=== PATIENT | female | born 1980 | race Caucasian/White ===

== ENCOUNTER 2018-01-19 09:33 | Inpatient (IN) | payer OTHER ==
[2018-01-19] MEDS ORDERED: Oxytocin 10 Units/1 ML SDV IM ONE (10:47)
[2018-01-19] MEDS ORDERED: Lidocaine 1% 50 ML MDV INJECT ONE (10:47)
[2018-01-19] MEDS ORDERED: Methylergonovine 0.2 MG/1 ML Amp IM PRN (10:47)
[2018-01-19] MEDS ORDERED: Sodium Chloride 0.9% 10 ML Syringe FLUSH PRN (10:47)
[2018-01-19] MEDS ORDERED: Nalbuphine 20 MG/ML 1 ML Syringe IVPUSH PRN (10:47)
[2018-01-19] MEDS ORDERED: Lactated Ringers 1,000 ML IV SCH (11:00)
[2018-01-19] MEDS ORDERED: Oxytocin/Lactated Ringers 10 UNIT/1,000 ML BAG IV SCH ×2 (11:00→21:15)
--- NOTE | 2018-01-19 12:09 | PCM.PREANE ---
Preanesthetic Assessment - Anesthesia/Transfusion/Family Hx Anesthesia History: Prior Anesthesia Without Reaction Family History of Anesthesia Reaction: No Transfusion History: Prior Transfusion Without Reaction Intubation History: Unknown - Review of Systems General: No Symptoms Pulmonary: No Symptoms Cardiovascular: No Symptoms Gastrointestinal: No Symptoms (GERD) Neurological: No Symptoms Other: Reports: None - Physical Assessment NPO Status Date: 01/19/18 NPO Status Time: 07:00 Pulse: 82 O2 Sat by Pulse Oximetry: 99 Respiratory Rate: 14 Blood Pressure: 119/68 Temperature: 36.9 C Height: 1.63 m Weight: 82.1 kg ASA Class: 2 Mental Status: Alert & Oriented x3 Airway Class: Mallampati = 2 Dentition: Reports: Normal Dentition, Caries Thyro-Mental Finger Breadths: 3 Mouth Opening Finger Breadths: 3 ROM/Head Extension: Full Lungs: Clear to Auscultation, Normal Respiratory Effort Cardiovascular: Regular Rate, Regular Rhythm, No Murmurs - Lab Values: Laboratory Last Values WBC 7.70 K/mm3 (3.98-10.04) 01/19/18 11:08 RBC 4.12 M/mm3 (3.98-5.22) 01/19/18 11:08 Hgb 11.1 gm/L (11.2-15.7) L 01/19/18 11:08 Hct 33.3 % (34.1-44.9) L 01/19/18 11:08 MCV 80.8 fl (79.4-94.8) 01/19/18 11:08 MCH 26.9 pg (25.6-32.2) 01/19/18 11:08 MCHC 33.3 g/dl (32.2-35.5) 01/19/18 11:08 RDW Std Deviation 44.3 fL (36.4-46.3) 01/19/18 11:08 Plt Count 218 K/mm3 (182-369) 01/19/18 11:08 MPV 9.0 fl (9.4-12.3) L 01/19/18 11:08 Neut % (Auto) 72.5 % (34.0-71.1) H 01/19/18 11:08 Lymph % (Auto) 16.0 % (19.3-51.7) L 01/19/18 11:08 [place] % (Auto) 9.2 % (4.7-12.5) 01/19/18 11:08 Eos % (Auto) 1.0 (0.7-5.8) 01/19/18 11:08 Baso % (Auto) 0.1 % (0.1-1.2) 01/19/18 11:08 Neut # (Auto) 5.58 K/mm3 (1.56-6.13) 01/19/18 11:08 Lymph # (Auto) 1.23 K/mm3 (1.18-3.74) 01/19/18 11:08 [place] # (Auto) 0.71 K/mm3 (0.24-0.36) H 01/19/18 11:08 Eos # (Auto) 0.08 K/mm3 (0.04-0.36) 01/19/18 11:08 Baso # (Auto) 0.01 K/mm3 (0.01-0.08) 01/19/18 11:08 Blood Type O POSITIVE 01/19/18 11:08 Gel Antibody Screen Negative 01/19/18 11:08 Above labs reviewed and noted and within acceptable ranges to proceed with potential . - Allergies Allergies/Adverse Reactions: Allergies Allergy/AdvReac Type Severity Reaction Status Date / Time No Known Allergies Allergy Verified 03/20/14 22:29 - Acknowledgements Anesthesia Type Planned: Spinal Pt an Appropriate Candidate for the Planned Anesthesia: Yes Alternatives and Risks of Anesthesia Discussed w Pt/Guardian: Yes Pt/Guardian Understands and Agrees with Anesthesia Plan: Yes PreAnesthesia Questionnaire - Past Health History Medical/Surgical History: Denies Medical/Surgical History Other Gastrointestinal History: Problems with gallbladder 8 years ago. 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 had with last baby with appendicitis at that time - Past Surgical History HEENT Surgical History: Reports: None GI Surgical History: Reports: Appendectomy - HOME MEDS Home Medications: Home Meds Vit No.130/Iron/FA [ Tablet] 1 tab PO DAILY 03/21/14 [History] - CURRENT (IN HOUSE) MEDS Current Meds: Current Medications Lactated Ringer's (Ringers, Lactated) 1,000 mls @ 100 mls/hr IV ASDIRECTED MICHELLE Oxytocin/Lactated Ringer's (Pitocin In Lr 10 Units/1,000 Ml) 10 unit in 1,000 mls @ 500 mls/hr IV .CONTINUOUS MICHELLE Oxytocin 10 unit/ Lactated (Ringer's) 1,001 mls @ 12.01 mls/hr IV TITRATE MICHELLE; Protocol Methylergonovine Maleate (Methergine) 0.2 mg IM ONETIME PRN PRN Reason: Excessive Vaginal bleeding Nalbuphine HCl (Nubain) 10 mg IVPUSH ONETIME PRN PRN Reason: Pain Sodium Chloride (Saline Flush) 10 ml FLUSH ASDIRECTED PRN PRN Reason: Keep Vein Open Discontinued Medications Lidocaine HCl (Xylocaine 1%) 50 ml INJECT ONETIME ONE Stop: 01/19/18 10:48 Oxytocin (Pitocin) 10 unit IM ONETIME ONE Stop: 01/19/18 10:48
--- NOTE | 2018-01-19 17:31 | PCM.LDHP ---
L&D History of Present Illness - General Date of Service: 01/19/18 Admit Problem/Dx: Patient Status Order with Admit Dx/Problem 01/19/18 10:00 Patient Status [ADT] Routine Admission Diagnosis/Problem Admission Diagnosis/Problem Source of Information: Patient - History of Present Illness Introduction:: 37 year old female here for induction of labor secondary to history of demise. - Related Data Allergies/Adverse Reactions: Allergies Allergy/AdvReac Type Severity Reaction Status Date / Time No Known Allergies Allergy Verified 03/20/14 22:29 Home Medications: Home Meds Vit No.130/Iron/FA [ Tablet] 1 tab PO DAILY 03/21/14 [History] Past Medical History - Past Health History Medical/Surgical History: Denies Medical/Surgical History Other Gastrointestinal History: Problems with gallbladder 8 years ago. 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 had with last baby with appendicitis at that time - Past Surgical History HEENT Surgical History: Reports: None GI Surgical History: Reports: Appendectomy Social & Family History - Family History Family Medical History: Noncontributory Cardiac: Reports: Hypertension Endocrine/Metabolic: Reports: Diabetes, type II Hematologic: Reports: None Immunologic: Reports: None Oncologic: Reports: Lung, Skin - Tobacco Use Smoking Status *Q: Never Smoker Second Hand Smoke Exposure: No - Caffeine Use Caffeine Use: Reports: None - Recreational Drug Use Recreational Drug Use: No - Living Situation & Occupation Living situation: Reports: H&P Review of Systems - Review of Systems: Review Of Systems: See Below General: Reports: No Symptoms HEENT: Reports: No Symptoms Pulmonary: Reports: No Symptoms Cardiovascular: Reports: No Symptoms Gastrointestinal: Reports: No Symptoms Genitourinary: Reports: No Symptoms Musculoskeletal: Reports: No Symptoms Skin: Reports: No Symptoms Psychiatric: Reports: No Symptoms Neurological: Reports: No Symptoms Hematologic/Lymphatic: Reports: No Symptoms Immunologic: Reports: No Symptoms L&D Exam - Exam Exam: See Below - Vital Signs Vital Signs: Last Vital Signs Temp 36.9 C 01/19/18 12:10 Pulse 82 01/19/18 12:10 Resp 14 01/19/18 12:10 BP 119/68 01/19/18 12:10 Pulse Ox 99 01/19/18 12:10 Weight: 82.1 kg - OB Specific Contraction Intensity: Mild to Moderate Movement: Active Heart Tones: Present Heart Rate (FHR) Variability: Moderate (6-25 bmp) Presentation: Vertex - [place] Score [place] Score Cervix Position: Posterior [place] Score Consistency: Soft [place] Score Effacement: >80% [place] Score Dilation: 3-4 cm [place] Score 's Station: -2 [place] Score Total: 8 - Exam General: Alert, Oriented HEENT: PERRLA, Conjunctiva Clear, EACs Clear, EOMI, Hearing Intact, Mucosa Moist & [place], Nares Patent, Normal Nasal Septum, Posterior Pharynx Clear, TMs Clear Neck: Supple, Trachea Midline Lungs: Clear to Auscultation, Normal Respiratory Effort Cardiovascular: Regular Rate, Regular Rhythm GI/Abdominal Exam: Normal Bowel Sounds, Soft, Non-Tender, No Organomegaly, No Distention, No Abnormal Bruit, No Mass, Pelvis Stable Rectal Exam: Normal Exam, Normal Rectal Tone Genitourinary: Normal external exam, Normal bimanual exam, Normal speculum exam Back Exam: Normal Inspection, Full Range of Motion Extremities: Normal Inspection, Normal Range of Motion, Non-Tender, No Pedal Edema, Normal Capillary Refill Neurological: Cranial Nerves Intact, Reflexes Equal Bilateral Psychiatric: Alert, Normal Affect, Normal Mood - Patient Data Lab Results Last 24 hrs: Laboratory Results - last 24 hr 01/19/18 01/19/18 01/19/18 Range/Units 11:08 11:08 11:08 WBC 7.70 (3.98-10.04) K/mm3 RBC 4.12 (3.98-5.22) M/mm3 Hgb 11.1 L (11.2-15.7) gm/L Hct 33.3 L (34.1-44.9) % MCV 80.8 (79.4-94.8) fl MCH 26.9 (25.6-32.2) pg MCHC 33.3 (32.2-35.5) g/dl RDW Std Deviation 44.3 (36.4-46.3) fL Plt Count 218 (182-369) K/mm3 MPV 9.0 L (9.4-12.3) fl Neut % (Auto) 72.5 H (34.0-71.1) % Lymph % (Auto) 16.0 L (19.3-51.7) % [place] % (Auto) 9.2 (4.7-12.5) % Eos % (Auto) 1.0 (0.7-5.8) Baso % (Auto) 0.1 (0.1-1.2) % Neut # (Auto) 5.58 (1.56-6.13) K/mm3 Lymph # (Auto) 1.23 (1.18-3.74) K/mm3 [place] # (Auto) 0.71 H (0.24-0.36) K/mm3 Eos # (Auto) 0.08 (0.04-0.36) K/mm3 Baso # (Auto) 0.01 (0.01-0.08) K/mm3 RPR Non-reactive (NONREACTIVE) Blood Type O POSITIVE Gel Antibody Screen Negative Result Diagrams: 01/19/18 11:08 Problem List Initiated/Reviewed/Updated: Yes Orders Last 24hrs: Active Orders 24 hr Category Date Time Status Patient Status Manage Transfer [TRANSFER] Routine ADT 01/19/18 17:26 Active Patient Status [ADT] Routine ADT 01/19/18 10:00 Active Activity as Tolerated [RC] PFP Care 01/19/18 10:47 Active Communication Order [RC] ASDIRECTED Care 01/19/18 10:47 Active Notify Provider [RC] PFP Care 01/19/18 10:47 Active Notify Provider [RC] PRN Care 01/19/18 10:47 Active Peripheral IV Care [RC] . DIRECTED Care 01/19/18 10:48 Active Pump Management, Intrathecal [RC] ASDIRECTED Care 01/19/18 10:48 Active Urinary Catheter Assessment [RC] ASDIRECTED Care 01/19/18 10:47 Active Vital Signs [RC] PER UNIT ROUTINE Care 01/19/18 10:47 Active Regular Diet [DIET] Diet 01/19/18 Lunch Active Lactated Ringers [Ringers, Lactated] 1,000 ml Med 01/19/18 11:00 Active IV ASDIRECTED Methylergonovine [Methergine] Med 01/19/18 10:47 Active 0.2 mg IM ONETIME PRN Nalbuphine [Nubain] Med 01/19/18 10:47 Active 10 mg IVPUSH ONETIME PRN Oxytocin [Pitocin] 10 unit Med 01/19/18 11:00 Active Lactated Ringers [Ringers, Lactated] 1,000 ml IV TITRATE Oxytocin/Lactated Ringers [Pitocin in LR 10 Units/1,000 Med 01/19/18 11:00 Active ML] 10 unit in 1,000 ml IV .CONTINUOUS Sodium Chloride 0.9% [Saline Flush] Med 01/19/18 10:47 Active 10 ml FLUSH ASDIRECTED PRN Electronic Heart Tones Ext w TOCO [WOMSER] Oth 01/19/18 10:47 Ordered Routine Electronic Heart Tones Internal [WOMSER] Per Unit Oth 01/19/18 10:47 Ordered Routine Peripheral IV Insertion Adult [OM.PC] Routine Oth 01/19/18 10:47 Ordered Resuscitation Status Routine Resus Stat 01/19/18 10:47 Ordered Medication Orders Lactated Ringer's (Ringers, Lactated) 1,000 mls @ 100 mls/hr IV ASDIRECTED MICHELLE Last Admin: 01/19/18 16:30 Dose: 100 mls/hr Oxytocin/Lactated Ringer's (Pitocin In Lr 10 Units/1,000 Ml) 10 unit in 1,000 mls @ 500 mls/hr IV .CONTINUOUS MICHELLE Last Admin: 01/19/18 17:20 Dose: 500 mls/hr Oxytocin 10 unit/ Lactated (Ringer's) 1,001 mls @ 12.01 mls/hr IV TITRATE MICHELLE; Protocol Methylergonovine Maleate (Methergine) 0.2 mg IM ONETIME PRN PRN Reason: Excessive Vaginal bleeding Nalbuphine HCl (Nubain) 10 mg IVPUSH ONETIME PRN PRN Reason: Pain Sodium Chloride (Saline Flush) 10 ml FLUSH ASDIRECTED PRN PRN Reason: Keep Vein Open Assessment/Plan Comment:: Term induction. AROM. Anticipate .
--- NOTE | 2018-01-19 17:36 | PCM.SN ---
- Free Text/Narrative Note: Stage I - Patient presented for induction of labor. AROM clear fluid. Progressed to complete. Stage II - of viable female, weight 8#10oz, 8/9 APGARS at 1712. Head delivered in controlled manner over intact perineum. Mild shoulder dystocia resolved in 30 seconds with [place]. Body followed atraumatically. Cord clamped and cut. Baby to warmer. Vigorous. Cord blood collected. Stage III - of intact placenta, 3VC. Small 1st degree MLL repaired with 3-0 vicryl.
[2018-01-19] MEDS ORDERED: Ampicillin 2 GM in Sodium Chloride 0.9% 100 ML IV ONE (17:50)
[2018-01-19] MEDS ORDERED: Docusate Sodium 100 MG Cap PO PRN (17:50)
[2018-01-19] MEDS ORDERED: Benzocaine/Menthol 20%-0.5% Spray 56 GM Canister TOP PRN (18:00)
[2018-01-19] MEDS ORDERED: Witch Hazel Medicated Pads 100/Jar TOP PRN (18:00)
[2018-01-19] MEDS: Ibuprofen 600 MG Tab PO PRN (18:30)
[2018-01-19] MEDS ORDERED: Dextrose 5%-0.45% NaCl 1,000 ML ONE (21:06)
[2018-01-19] MEDS ORDERED: Lactated Ringers 1,000 ML ONE ×2 (21:07→21:14)
--- NOTE | 2018-01-19 21:43 | PCM.PN ---
- General Info Date of Service: 01/19/18 Subjective Update: Called to bedside after syncopal episode with some increased bleeding and clots upon getting up to bathroom. No significant initial bleeding but after voiding had a few golf ball sized clots. Rapid response had been called by nurses. No resting comfortably in bed. CBC slightly decreased from admission. Functional Status: Reports: Pain Controlled - Review of Systems General: Reports: Fatigue - Patient Data Vitals - Most Recent: Last Vital Signs Temp 37.1 C 01/19/18 20:48 Pulse 92 01/19/18 20:48 Resp 16 01/19/18 20:48 BP 136/78 01/19/18 20:48 Pulse Ox 100 01/19/18 20:48 Weight - Most Recent: 82.1 kg Lab Results Last 24 Hours: Laboratory Results - last 24 hr 01/19/18 01/19/18 01/19/18 Range/Units 11:08 11:08 11:08 WBC 7.70 (3.98-10.04) K/mm3 RBC 4.12 (3.98-5.22) M/mm3 Hgb 11.1 L (11.2-15.7) gm/L Hct 33.3 L (34.1-44.9) % MCV 80.8 (79.4-94.8) fl MCH 26.9 (25.6-32.2) pg MCHC 33.3 (32.2-35.5) g/dl RDW Std Deviation 44.3 (36.4-46.3) fL Plt Count 218 (182-369) K/mm3 MPV 9.0 L (9.4-12.3) fl Neut % (Auto) 72.5 H (34.0-71.1) % Lymph % (Auto) 16.0 L (19.3-51.7) % [place] % (Auto) 9.2 (4.7-12.5) % Eos % (Auto) 1.0 (0.7-5.8) Baso % (Auto) 0.1 (0.1-1.2) % Neut # (Auto) 5.58 (1.56-6.13) K/mm3 Lymph # (Auto) 1.23 (1.18-3.74) K/mm3 [place] # (Auto) 0.71 H (0.24-0.36) K/mm3 Eos # (Auto) 0.08 (0.04-0.36) K/mm3 Baso # (Auto) 0.01 (0.01-0.08) K/mm3 RPR Non-reactive (NONREACTIVE) Blood Type O POSITIVE Gel Antibody Screen Negative Med Orders - Current: Current Medications Benzocaine/Menthol (Dermoplast Pain Relief [place]) 0 gm TOP ASDIRECTED PRN PRN Reason: Pain Last Admin: 01/19/18 19:20 Dose: 1 spray Docusate Sodium (Colace) 100 mg PO BID PRN PRN Reason: Constipation Oxytocin/Lactated Ringer's (Pitocin In Lr 10 Units/1,000 Ml) 10 unit in 1,000 mls @ 12 mls/hr IV TITRATE MICHELLE; Protocol Ibuprofen (Motrin) 600 mg PO Q6H PRN PRN Reason: Mild pain or fever Last Admin: 01/19/18 18:30 Dose: 600 mg Witch [place] (Tucks) 1 pad TOP ASDIRECTED PRN PRN Reason: Pain Last Admin: 01/19/18 19:21 Dose: 1 pad Discontinued Medications Lactated Ringer's (Ringers, Lactated) 1,000 mls @ 100 mls/hr IV ASDIRECTED MICHELLE Last Admin: 01/19/18 16:30 Dose: 100 mls/hr Oxytocin/Lactated Ringer's (Pitocin In Lr 10 Units/1,000 Ml) 10 unit in 1,000 mls @ 500 mls/hr IV .CONTINUOUS MICHELLE Last Admin: 01/19/18 17:20 Dose: 500 mls/hr Oxytocin 10 unit/ Lactated (Ringer's) 1,001 mls @ 12.01 mls/hr IV TITRATE MICHELLE; Protocol Ampicillin Sodium 2 gm/ Sodium (Chloride) 100 mls @ 200 mls/hr IV NOW ONE Stop: 01/19/18 18:19 Last Admin: 01/19/18 18:31 Dose: 200 mls/hr Dextrose/Sodium Chloride (Dextrose 5%-1/2 Ns) Confirm Administered Dose 1,000 mls @ as directed .ROUTE .STK-MED ONE Stop: 01/19/18 21:07 Lactated Ringer's (Ringers, Lactated) Confirm Administered Dose 1,000 mls @ as directed .ROUTE .STK-MED ONE Stop: 01/19/18 21:08 Lactated Ringer's (Ringers, Lactated) Confirm Administered Dose 1,000 mls @ as directed .ROUTE .STK-MED ONE Stop: 01/19/18 21:15 Lidocaine HCl (Xylocaine 1%) 50 ml INJECT ONETIME ONE Stop: 01/19/18 10:48 Last Admin: 01/19/18 18:32 Dose: 50 ml Methylergonovine Maleate (Methergine) 0.2 mg IM ONETIME PRN PRN Reason: Excessive Vaginal bleeding Nalbuphine HCl (Nubain) 10 mg IVPUSH ONETIME PRN PRN Reason: Pain Oxytocin (Pitocin) 10 unit IM ONETIME ONE Stop: 01/19/18 10:48 Sodium Chloride (Saline Flush) 10 ml FLUSH ASDIRECTED PRN PRN Reason: Keep Vein Open - Exam General: Alert, Oriented HEENT: Pupils Equal, Pupils Reactive, EOMI, Mucous Membr. Moist/[place] Neck: Supple Lungs: Clear to Auscultation, Normal Respiratory Effort Cardiovascular: Regular Rate, Regular Rhythm GI/Abdominal Exam: Normal Bowel Sounds, Soft, Non-Tender, No Organomegaly, No Abnormal Bruit, No Mass (Female) Exam: Other (fundus firm, -2u, bimanual exam no clot) Back Exam: Normal Inspection, Full Range of Motion Extremities: Normal Inspection, Normal Range of Motion, Non-Tender, No Pedal Edema, Normal Capillary Refill Skin: Warm, Dry, Intact Wound/Incisions: Healing Well Neurological: No New Focal Deficit Psy/Mental Status: Alert, Normal Affect, Normal Mood - Problem List Review Problem List Initiated/Reviewed/Updated: Yes - My Orders Last 24 Hours: My Active Orders 01/19/18 10:47 Urinary Catheter Assessment [RC] ASDIRECTED Resuscitation Status Routine 01/19/18 10:48 Pump Management, Intrathecal [RC] ASDIRECTED 01/19/18 17:50 Activity as Tolerated [RC] PER UNIT ROUTINE Vital Signs [RC] 03,09,15,21 Docusate Sodium [Colace] 100 mg PO BID PRN Ibuprofen [Motrin] 600 mg PO Q6H PRN Assess Lochia [WOMSER] Per Unit Routine Assess Uterine Involution [WOMSER] Per Unit Routine Breast Pump [WOMSER] Per Unit Routine Heat Therapy [OM.PC] PRN Medication Administration Instruction [OM.PC] Routine Perineal Care [OM.PC] Per Unit Routine Sitz Bath [OM.PC] Per Unit Routine 01/19/18 18:00 Benzocaine/Menthol [Dermoplast Pain Relief [place]] 0 gm TOP ASDIRECTED PRN Witch [place] [Tucks] 1 pad TOP ASDIRECTED PRN 01/19/18 21:15 Oxytocin/Lactated Ringers [Pitocin in LR 10 Units/1,000 ML] 10 unit in 1,000 ml IV TITRATE 01/20/18 17:50 Heat Therapy [OM.PC] PRN - Assessment Assessment:: Doing well. Stable CBC with small drop. Pitocin in next bag. Watch bleeding carefully - Plan Plan:: Term induction. AROM. Anticipate .
[2018-01-20] MEDS: Ibuprofen 600 MG Tab PO PRN ×3 (00:40→13:16)
--- NOTE | 2018-01-20 15:22 | PCM.DCSUM1 ---
Discharge Summary - Hospital Course Diagnosis: Stroke: No - Discharge Data Discharge Date: 01/20/18 Discharge Disposition: Home, Self-Care 01 Condition: Good - Patient Summary/Data Hospital Course: Admitted for induction of labor. Progressed to complete with reassuring heart tones. - Patient Instructions Diet: Usual Diet as Tolerated Activity: No Strenuous Activities Driving: May Drive Today Showering/Bathing: May Shower Notify Provider of: Fever, Increased Pain, Swelling and Redness, Drainage, Nausea and/or Vomiting - Discharge Plan *PRESCRIPTION DRUG MONITORING PROGRAM REVIEWED*: No Home Medications: Home Meds Vit No.130/Iron/FA [ Tablet] 1 tab PO DAILY 03/21/14 [History] Referrals: Mercedes Devine MD [Primary Care Provider] - (2 weeks) - Discharge Summary/Plan Comment DC Time >30 min.: No - General Info Date of Service: 01/20/18 Functional Status: Reports: Pain Controlled - Review of Systems General: Reports: No Symptoms HEENT: Reports: No Symptoms Pulmonary: Reports: No Symptoms Cardiovascular: Reports: No Symptoms Gastrointestinal: Reports: No Symptoms Genitourinary: Reports: No Symptoms Musculoskeletal: Reports: No Symptoms Skin: Reports: No Symptoms Neurological: Reports: No Symptoms Psychiatric: Reports: No Symptoms - Patient Data Vitals - Most Recent: Last Vital Signs Temp 36.3 C 01/20/18 09:43 Pulse 99 01/20/18 09:43 Resp 16 01/20/18 09:43 BP 124/67 01/20/18 09:43 Pulse Ox 98 01/20/18 09:43 Weight - Most Recent: 82.1 kg I&O - Last 24 hours: Intake & Output 01/20/18 01/20/18 01/20/18 06:59 14:59 22:59 Intake Total 0 Balance 0 Lab Results - Last 24 hrs: Laboratory Results - last 24 hr 01/19/18 Range/Units 21:20 WBC 19.65 H (3.98-10.04) K/mm3 RBC 3.88 L (3.98-5.22) M/mm3 Hgb 10.4 L (11.2-15.7) gm/L Hct 31.4 L (34.1-44.9) % MCV 80.9 (79.4-94.8) fl MCH 26.8 (25.6-32.2) pg MCHC 33.1 (32.2-35.5) g/dl RDW Std Deviation 43.7 (36.4-46.3) fL Plt Count 259 (182-369) K/mm3 MPV 9.2 L (9.4-12.3) fl Neut % (Auto) 82.3 H (34.0-71.1) % Lymph % (Auto) 9.6 L (19.3-51.7) % [place] % (Auto) 6.7 (4.7-12.5) % Eos % (Auto) 0.2 L (0.7-5.8) Baso % (Auto) 0.2 (0.1-1.2) % Neut # (Auto) 16.21 H (1.56-6.13) K/mm3 Lymph # (Auto) 1.88 (1.18-3.74) K/mm3 [place] # (Auto) 1.31 H (0.24-0.36) K/mm3 Eos # (Auto) 0.03 L (0.04-0.36) K/mm3 Baso # (Auto) 0.03 (0.01-0.08) K/mm3 Manual Slide Review Abnormal smear Med Orders - Current: Current Medications Benzocaine/Menthol (Dermoplast Pain Relief [place]) 0 gm TOP ASDIRECTED PRN PRN Reason: Pain Last Admin: 01/19/18 19:20 Dose: 1 spray Docusate Sodium (Colace) 100 mg PO BID PRN PRN Reason: Constipation Oxytocin/Lactated Ringer's (Pitocin In Lr 10 Units/1,000 Ml) 10 unit in 1,000 mls @ 12 mls/hr IV TITRATE MICHELLE; Protocol Last Admin: 01/19/18 22:08 Dose: 2 munits/min, 12 mls/hr Ibuprofen (Motrin) 600 mg PO Q6H PRN PRN Reason: Mild pain or fever Last Admin: 01/20/18 13:16 Dose: 600 mg Witch [place] (Tucks) 1 pad TOP ASDIRECTED PRN PRN Reason: Pain Last Admin: 01/19/18 19:21 Dose: 1 pad Discontinued Medications Lactated Ringer's (Ringers, Lactated) 1,000 mls @ 100 mls/hr IV ASDIRECTED MICHELLE Last Admin: 01/19/18 16:30 Dose: 100 mls/hr Oxytocin/Lactated Ringer's (Pitocin In Lr 10 Units/1,000 Ml) 10 unit in 1,000 mls @ 500 mls/hr IV .CONTINUOUS MICHELLE Last Admin: 01/19/18 17:20 Dose: 500 mls/hr Oxytocin 10 unit/ Lactated (Ringer's) 1,001 mls @ 12.01 mls/hr IV TITRATE MICHELLE; Protocol Ampicillin Sodium 2 gm/ Sodium (Chloride) 100 mls @ 200 mls/hr IV NOW ONE Stop: 01/19/18 18:19 Last Admin: 01/19/18 18:31 Dose: 200 mls/hr Dextrose/Sodium Chloride (Dextrose 5%-1/2 Ns) Confirm Administered Dose 1,000 mls @ as directed .ROUTE .STVivastream-MED ONE Stop: 01/19/18 21:07 Last Admin: 01/20/18 02:35 Dose: Not Given Lactated Ringer's (Ringers, Lactated) Confirm Administered Dose 1,000 mls @ as directed .ROUTE .STK-MED ONE Stop: 01/19/18 21:08 Last Admin: 01/19/18 22:07 Dose: 100 mls/hr Lactated Ringer's (Ringers, Lactated) Confirm Administered Dose 1,000 mls @ as directed .ROUTE .STK-MED ONE Stop: 01/19/18 21:15 Last Admin: 01/20/18 02:36 Dose: Not Given Lidocaine HCl (Xylocaine 1%) 50 ml INJECT ONETIME ONE Stop: 01/19/18 10:48 Last Admin: 01/19/18 18:32 Dose: 50 ml Methylergonovine Maleate (Methergine) 0.2 mg IM ONETIME PRN PRN Reason: Excessive Vaginal bleeding Nalbuphine HCl (Nubain) 10 mg IVPUSH ONETIME PRN PRN Reason: Pain Oxytocin (Pitocin) 10 unit IM ONETIME ONE Stop: 01/19/18 10:48 Sodium Chloride (Saline Flush) 10 ml FLUSH ASDIRECTED PRN PRN Reason: Keep Vein Open - Exam General: Reports: Alert, Oriented HEENT: Reports: Pupils Equal, Pupils Reactive, EOMI, Mucous Membr. Moist/[place] Neck: Reports: Supple Lungs: Reports: Clear to Auscultation, Normal Respiratory Effort Cardiovascular: Reports: Regular Rate, Regular Rhythm GI/Abdominal Exam: Normal Bowel Sounds, Soft, Non-Tender, No Organomegaly, No Distention, No Abnormal Bruit, No Mass, Pelvis Stable (Female) Exam: Normal External Exam, Normal Speculum Exam, Normal Bimanual Exam Back Exam: Reports: Normal Inspection, Full Range of Motion Extremities: Normal Inspection, Normal Range of Motion, Non-Tender, No Pedal Edema, Normal Capillary Refill Skin: Reports: Warm, Dry, Intact Wound/Incisions: Reports: Healing Well Neurological: Reports: No New Focal Deficit Psy/Mental Status: Reports: Alert, Normal Affect, Normal Mood
[2018-01-20 19:08] VITALS: BP 119/68
== END 2018-01-20 18:30 | disposition home or self-care (01) | DRG 775 ==
LOC: JD.OB 09:33 → OBSVTOIN 17:10 → JD.OB 17:10
PROVIDERS: ADMIT Obstetrics & Gynecology; ATTEND Obstetrics & Gynecology
PROC: 6A550ZT Pheresis of Cord Blood Stem Cells, Single (ICD-10-PCS; principal; 2018-01-19)
PROC: 10E0XZZ Delivery of Products of Conception, External Approach (ICD-10-PCS; principal; 2018-01-19)
PROC: 0HQ9XZZ Repair Perineum Skin, External Approach (ICD-10-PCS; principal; 2018-01-19)
PROC: 10907ZC Drainage of Amniotic Fluid, Therapeutic from Products of Conception, Via Natural or Artificial Opening (ICD-10-PCS; principal; 2018-01-19)
PROC: 3E0234Z Introduction of Serum, Toxoid and Vaccine into Muscle, Percutaneous Approach (ICD-10-PCS; 2018-01-20)
DX: O34.219 Maternal care for unspecified type scar from previous cesarean delivery (principal); N85.8 Other specified noninflammatory disorders of uterus; Z3A.39 39 weeks gestation of pregnancy; Z37.0 Single live birth; O70.0 First degree perineal laceration during delivery; Z23 Encounter for immunization
CPT/HCPCS: 36415; 59025; 59300; 59409; 85025; 86592; 86850; 86900; 86901; A9270-GY; J0290; J2590; J7030; J7120

== ENCOUNTER 2025-04-02 20:01 | Emergency (ER) | payer BC, OTHER ==
[2025-04-02 21:52] VITALS: BP 140/90; PULSE 85
== END 2025-04-02 21:50 | disposition home or self-care (01) ==
LOC: JD.ED 20:01
DX: M25.571 Pain in right ankle and joints of right foot (principal); Z79.899 Other long term (current) drug therapy; Z90.49 Acquired absence of other specified parts of digestive tract
CPT/HCPCS: 73610-26-RT; 73610-RT; 93971-26-RT; 93971-RT; 99283; 99284